=== PATIENT | female | born 1985 | race Caucasian/White ===

== ENCOUNTER 2024-01-14 21:45 | Emergency (ER) | payer MEDICAID, OTHER ==
[~2024-01-14] VITALS: Ht 157.5 cm; Wt 67.6 kg
[2024-01-14 22:00] VITALS: BP 134/89; PULSE 83; RESP 18; O2SAT 96
[2024-01-14 22:18] LABS: Urine Bacteria None Seen /hpf (None Seen)
[2024-01-14 22:26] LABS: Urine Blood Negative /uL (Negative); Urine Clarity Clear (Clear); Urine Color Yellow (Yellow); Urine Hyaline Cast FEW /lpf (0 - 2); Urine Mucus FEW (None Seen); Urine Protein, UAD Negative (Negative); Urine Specific Gravity 1.024 (1.001-1.035); Urine Urobilinogen Normal (Negative); Urine WBC 2 /hpf (0 - 5); Urine pH 5.5 (5.0-9.0)
== END 2024-01-15 00:02 | disposition left against medical advice (07) ==
LOC: ER 21:45
DX: N76.0 Acute vaginitis (principal); Z53.21 Procedure and treatment not carried out due to patient leaving prior to being seen by health care provider
CPT/HCPCS: 81001